=== PATIENT | male | born 1990 | race Caucasian/White ===

== ENCOUNTER 2018-03-04 19:44 | Emergency (ER) | payer OTHER ==
[2018-03-04 20:29] LABS: EOSINOPHILE ABSOLUTE 0.1 Th/cmm (0.1-0.4); HEMATOCRIT 38.7 % (41.0-60)
[2018-03-04 20:31] LABS: % EOSINOPHILS 0.9 % (0.0-5.0); % LYMPHOCYTES 18.4 % (20.0-50.0); % MONOCYTES 4.9 % (2.0-10.0); % NEUTROPHILS 75.8 % (40.0-80.0); HEMOGLOBIN 12.9 gm/dL (12-16); MEAN CELL VOLUME 82.5 fl (80-99); MEAN CORPUSCULAR HEMOGLOBIN 27.5 pg (26.0-30.0); MEAN CORPUSCULAR HGB CONC 33.4 pg (28.0-36.0); MEAN PLATELET VOLUME 7.8 fl; MONOCYTE ABSOLUTE 0.5 Th/cmm (0.3-1.0); NEUTROPHILE ABSOLUTE 8.3 Th/cmm (1.8-8.0); PLATELET COUNT 392 Th/cmm (150-400); WHITE BLOOD COUNT 10.9 Th/cmm (4.8-10.8)
[2018-03-04 20:45] LABS: ALB/GLOB RATIO 1.7 (1.0-1.8); ALKALINE PHOSPHATASE 82 U/L (34-104); ANION GAP 11.3 (7.0-16.0); BILIRUBIN,TOTAL 0.3 mg/dL (0.3-1.0); BUN - UREA NITROGEN 17 mg/dL (7-25); CARBON DIOXIDE 27.8 mEq/L (21.0-31.0); CHLORIDE 102 mEq/L (98-107); GFR AFRICAN-AMERICAN > 60.0 ml/min (>90); GFR NON AFRICAN-AMERICAN > 60.0 ml/min; GLUCOSE 139 mg/dL (70-105); POTASSIUM SERUM 4.1 mEq/L (3.5-5.1); SGOT 13 U/L (13-39); SGPT/ALT 19 U/L (7-52); SODIUM SERUM 137 mEq/L (136-145); TOTAL PROTEIN,SERUM 6.4 gm/dL (6.0-8.3)
--- NOTE | 2018-03-04 21:02 | ED Physician Chart ---
ED Chief Complaint/HPI - Patient Information Date Seen:: 03/04/18 Time Seen:: 20:00 Chief Complaint:: left arm pain History of Present Illness:: location: left arm quality: sharp pain severity: moderate duration: 3 days context: pt with history of IV heroin use. says he hasnt used any IV drugs in the last 3 days. says last IV drug use was last week. noticed swelling at left forearm. 3 days ago. then noticed pain at left arm in last 24 hours. also noticed some swelling developing over the affected area. decided to come to the ER for physician examination today. no fever, no vomiting, denies illicit drug use today. pt walked into ER independently. mod factors: none assoc s/s: none hx from pt. Allergies:: Allergies Allergy/AdvReac Type Severity Reaction Status Date / Time No Known Allergies Allergy Verified 03/04/18 19:58 Vitals:: Vital Signs - 8 hr 03/04/18 19:45 Temp 99.7 F HR 119 RR 20 BP 143/72 O2 Sat % 96 Historian:: Patient Review:: Nurse's Note Reviewed ED Review of Systems - Review of Systems General/Constitutional: No fever, No chills, No weight loss, No weakness, No diaphoresis, No edema, No loss of appetite Skin: No skin lesions, No rash, No bruising Head: No headache, No light-headedness Eyes: No loss of vision, No pain, No diplopia ENT: No earache, No nasal drainage, No sore throat, No tinnitus Neck: No neck pain, No swelling, No thyromegaly, No stiffness, No mass noted Cardio Vascular: No chest pain, No palpitations, No PND, No orthopnea, No edema Pulmonary: No SOB, No cough, No sputum, No wheezing GI: No nausea, No vomiting, No diarrhea, No pain, No melena, No hematochezia, No constipation, No hematemesis G/U: No dysuria, No frequency, No hematuria Musculoskeletal: No bone or joint pain, No back pain, No muscle pain, Other ( left outer forearm pain. no wound, no pus discharge. ) Endocrine: No polyuria, No polydipsia Psychiatric: No prior psych history, No depression, No anxiety, No suicidal ideation Hematopoietic: No bruising, No lymphadenopathy Allergic/Immuno: No urticaria, No angioedema Neurological: No syncope, No focal symptoms, No weakness, No paresthesia, No headache, No seizure, No dizziness, No confusion, No vertigo ED Past Medical History - Past Medical History Past Medical History: No significant medical hx Family History: None Social History: Smoker, Alcohol, Illicit Drug Use, Single, Lives With Parents Surgical History: other (dumont catheter for childhood leukemia) Psychiatricy History: None Medication: None Family Medical History - Family Member Mother History Unknown: Yes Ethnicity: Non- ED Physical Exam - Physical Examination General/Constitutional: Awake, Well-developed, well-nourished, Alert, No distress, GCS 15, Non-toxic appearing, Ambulatory Head: Atraumatic Eyes: Lids, conjuctiva normal, PERRL, EOMI Skin: Nl inspection, No rash, No skin lesions, No ecchymosis, Well hydrated, No lymphadenopathy ENMT: External ears, nose nl, Nasal exam nl, Lips, teeth, gums nl Neck: Nontender, Full ROM w/o pain, No JVD, No nuchal rigidity, No bruit, No mass, No stridor Respiratory: Nl effort/Exclusion, Clear to Auscultation, No Wheeze/Rhonchi/Rales Cardio Vascular: RRR, No murmur, gallop, rubs, NL S1 S2 GI: No tenderness/rebounding/guarding, Normal BS's, Nondistended : No CVA tenderness Extremities: No tenderness or effusion, Full ROM, normal strength in all extremities, No edema, Normal digits & nails Neuro/Psych: Alert/oriented, Normal sensory exam, Normal motor strength, Judgement/insight normal, Mood normal, Normal gait, No focal deficits Misc: Normal back, No paraspinal tenderness ED Labs/Radiology/EKG Results - Lab Results Results: Laboratory Tests 03/04/18 03/04/18 03/04/18 20:05 20:05 20:05 WBC 10.9 H RBC 4.70 Hgb 12.9 Hct 38.7 L MCV 82.5 MCH 27.5 MCHC Differential 33.4 RDW 14.0 Plt Count 392 MPV 7.8 Neutrophils % 75.8 Lymphocytes % 18.4 L Monocytes % 4.9 Eosinophils % 0.9 Basophils % 0.0 Sodium 137 Potassium 4.1 Chloride 102 Carbon Dioxide 27.8 Anion Gap 11.3 BUN 17 Creatinine 1.0 Est GFR ( Amer) > 60.0 Est GFR (Non-Af Amer) > 60.0 BUN/Creatinine Ratio 17.0 Glucose 139 H Whole Bld Lactic Acid 1.79 Calcium 9.0 Total Bilirubin 0.3 AST 13 ALT 19 Alkaline Phosphatase 82 Total Protein 6.4 Albumin 4.0 L Globulin 2.4 Albumin/Globulin Ratio 1.7 ED Assessment - Assessment General Assessment: pt with cellulitis left forearm. physical examination of left upper limb: normal sensation throughout normal radial pulse small area of induration at left lateral/dorsal mid forearm. area of induration is 3 x 4 cm with no gross fluctuance no palpable lymph nodes at cubital fossa/region no erythema no streaking ED Septic Shock - . Is Septic Shock (SBP<90, OR Lactate>4 mmol\L) present?: No - <6hrs of presentation: Vital Signs: Vital Signs - 8 hr 03/04/18 19:45 Temp 99.7 F HR 119 RR 20 BP 143/72 O2 Sat % 96 Assessment of Lungs: Lung CTA bilateral Assessment of Heart: RRR Capillary refill evaluation: Capillary refill < 2 secs Skin Exam: Warm Comment: normal lactate ED Reassessment (Disposition) - Reassessment Reassessment:: left upper limb area of induration is explored/aspirated with 10cc syringe and no pus is obtained. final diagnosis: cellulitis left forearm. Reassessment Condition:: Unchanged, Improved - Diagnosis Diagnosis:: cellulitis left forearm - Aftercare/Follow up Instructions Aftercare/Follow-Up Instructions:: Refer to Discharge Instructions Medication Prescribed:: keflex 500mg po QID x 7 days - Patient Disposition Discharge/Transfer:: Home Time:: 21:15 Condition at Disposition:: Stable, Improved
== END 2018-03-04 21:57 | disposition home or self-care (01) ==
LOC: ER 19:44
DX: L03.114 Cellulitis of left upper limb (principal); F17.200 Nicotine dependence, unspecified, uncomplicated
CPT/HCPCS: 99284; 96374; 36415; 83605; 85025; 80053; 87040 ×2; J0696; Z7502